=== PATIENT | female | born 1950 | race Caucasian/White ===

== ENCOUNTER 2021-02-18 09:25 | Emergency (ER) | payer MEDICARE, BC ==
[~2021-02-18] VITALS: Ht 170.2 cm; Wt 81.5 kg
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
[2021-02-18 11:51] VITALS: BP 131/87
== END 2021-02-18 11:53 | disposition home or self-care (01) ==
LOC: ED 09:57
DX: L03.115 Cellulitis of right lower limb (principal); I10 Essential (primary) hypertension; E11.9 Type 2 diabetes mellitus without complications
CPT/HCPCS: 99284